=== PATIENT | female | born 2000 | race Two or more races ===

== ENCOUNTER 2021-06-16 16:00 | Emergency (ER) | payer MEDICAID ==
[~2021-06-16] VITALS: Ht 188 cm; Wt 182.0 kg
[2021-06-16] MEDS ORDERED: IBUPROFEN 600MG TABLET PO ONE (18:15)
[2021-06-16 18:35] LABS: BASOPHILS % 0.5 % (0.0-2.0); CHLORIDE 107 mEq/L (98-107); EOSINOPHILS % 0.9 % (0.0-5.0); HEMATOCRIT. 42.4 % (36.0-48.0); HEMOGLOBIN. 13.9 g/dL (12.0-16.0); LYMPHOCYTES % 29.2 % (20.0-50.0); MEAN CORPUSCULAR HEMOGLOBIN 27.1 pg (28.0-32.0); MEAN CORPUSCULAR VOLUME 82.7 fL (81.0-99.0); MEAN PLATELET VOLUME 9.4 fl (7.4-10.4); NEUTROPHILS % 62.4 % (40.0-76.0); PLATELET 320 x1000/uL (130-400); RED BLOOD CELL COUNT 5.13 mill/uL (4.2-5.4); RED CELL DISTRIBUTION WIDTH 13.9 % (11.6-14.6)
[2021-06-16 18:45] LABS: B-HCG QUANTITATIVE 33 mIU/mL (<3)
[2021-06-16 21:30] VITALS: BP 113/54
== END 2021-06-16 21:30 | disposition home or self-care (01) ==
LOC: ER 16:15
DX: O20.9 Hemorrhage in early pregnancy, unspecified (principal); Z3A.00 Weeks of gestation of pregnancy not specified
CPT/HCPCS: 36415; 76801; 80053; 84702; 85025; 86850; 86900; 99284